=== PATIENT | male | born 1960 | race Caucasian/White ===

== ENCOUNTER 2021-10-28 12:49 | Day surgery (SDC) | payer OTHER ==
[~2021-10-28] VITALS: Ht 185.4 cm; Wt 106.8 kg
[2021-10-28] MEDS ORDERED: BOOSTRIX/ADACEL VACCINE (DIPHTH/PERTUSS/ACELL/TETANUS) 0.5ML SYR IM.IMMUN ONE (13:05)
[2021-10-28] MEDS ORDERED: ONDANSETRON 4MG 2ML VIAL IV ONE (13:05)
[2021-10-28] MEDS: MORPHINE 2 MG/ML 1ML VIAL IV PRN ×2 (13:21→14:26)
[2021-10-28] MEDS ORDERED: NS 1,000 ML IV SCH (15:55)
[2021-10-28] MEDS: propofoL 200 MG/20 ML VIAL IV.PROC PRN ×5 (16:13→16:19)
[2021-10-28 16:50] LABS: HEMATOCRIT 46.8 % (42.0-52.0); HEMOGLOBIN 16.1 g/dl (13.5-17.5); MEAN CORPUSCULAR HEMOGLOBIN 33.1 pg (27.0-33.0); MEAN CORPUSCULAR HGB CONC 34.4 g/dl (32.0-36.5); MEAN CORPUSCULAR VOLUME 96.1 fl (80.0-96.0); PLATELET COUNT, AUTOMATED 205 10^3/uL (150-450); RED BLOOD COUNT 4.87 10^6/uL (4.30-6.10); WHITE BLOOD COUNT 9.6 10^3/uL (4.0-10.0)
[2021-10-28 17:15] LABS: BLOOD UREA NITROGEN 18 MG/DL (7-18); CARBON DIOXIDE LEVEL 25 MEQ/L (21-32); CHLORIDE LEVEL 108 MEQ/L (98-107); GLOMERULAR FILTRATION RATE > 60.0 (>56); GLUCOSE, FASTING 121 MG/DL (70-100); SODIUM LEVEL 140 MEQ/L (136-145)
[2021-10-28 17:22] LABS: RSV AMPLIFICATION NEGATIVE (NEGATIVE)
[2021-10-28] MEDS ORDERED: HOME MED LIST COMPLETE! XX SCH (17:50)
[2021-10-28] MEDS ORDERED: MIDAZOLAM INJ 2MG/2ML VIAL (J2250 PER 1MG) As Ordered ONE (18:11)
[2021-10-28] MEDS ORDERED: fentaNYL 100 MCG/2 ML INJECTION As Ordered ONE (18:11)
[2021-10-28] MEDS ORDERED: LIDOCAINE 2% 100MG/5ML SDV (FOR ANES.) As Ordered ONE (18:12)
[2021-10-28] MEDS ORDERED: propofoL 200 MG/20 ML VIAL As Ordered ONE (18:12)
[2021-10-28] MEDS ORDERED: METOCLOPRAMIDE INJ 10MG/2ML VIAL (J2765 PER 1) IV PRN (18:35)
[2021-10-28] MEDS ORDERED: ONDANSETRON 4MG 2ML VIAL IV PRN ×2 (18:35→19:50)
[2021-10-28] MEDS ORDERED: ACETAMINOPHEN TAB 650MG DOSE (2X325MG) PO PRN (18:35)
[2021-10-28] MEDS ORDERED: MORPHINE 2 MG/ML 1ML VIAL IV PRN (18:35)
[2021-10-28] MEDS ORDERED: LR 1,000 ML IV SCH ×2 (19:00→19:50)
[2021-10-28] MEDS ORDERED: oxyCODONE 5MG TAB PO PRN (19:50)
[2021-10-28] MEDS ORDERED: fentaNYL 100 MCG/2 ML INJECTION IV PRN (19:50)
[2021-10-28 20:20] VITALS: BP 154/92
[2021-10-28 20:50] VITALS: BP 153/91
[2021-10-28] MEDS: DOCUSATE SODIUM 100MG CAPSULE PO SCH (21:00)
[2021-10-28 21:20] VITALS: BP 148/89
[2021-10-28 22:20] VITALS: BP 146/85
[2021-10-28 23:05] VITALS: BP 144/86
[2021-10-28] MEDS: NORCO, ANEXSIA 5/325MG TABLET (HYDROcodone/ACETAMINOPHEN) PO PRN (23:14)
[2021-10-29 00:20] VITALS: BP 140/84
[2021-10-29 01:20] VITALS: BP 137/84
[2021-10-29 02:20] VITALS: BP 126/75
[2021-10-29 05:51] VITALS: BP 132/79
[2021-10-29] MEDS: DOCUSATE SODIUM 100MG CAPSULE PO SCH (09:53)
[2021-10-29] MEDS: NORCO, ANEXSIA 5/325MG TABLET (HYDROcodone/ACETAMINOPHEN) PO PRN (09:54)
[2021-10-29 10:00] VITALS: BP 130/81
[2021-10-29] MEDS ORDERED: HYDR-3715 PO (11:11)
== END 2021-10-29 12:05 | disposition home or self-care (01) ==
LOC: EDBD 12:49 → EDSEX 12:49 → M ED 12:49 → M SDC 12:50 → M MS5PR 20:23 → M SDC 10-29 12:05
PROVIDERS: ATTEND Surgery
DX: S53.104A Unspecified dislocation of right ulnohumeral joint, initial encounter (principal); S52.511A Displaced fracture of right radial styloid process, initial encounter for closed fracture; S42.112A Displaced fracture of body of scapula, left shoulder, initial encounter for closed fracture; W11.XXXA Fall on and from ladder, initial encounter; Y92.002 Bathroom of unspecified non-institutional (private) residence as the place of occurrence of the external cause; Y99.0 Civilian activity done for income or pay
CPT/HCPCS: 24605; 70450; 71045; 72125; 73030; 73060; 73080; 73090; 73110; 73200; 76000; 80048; 85027; 87631; 90471; 90715; 93005; 93041; 94760; 96374; 96375; 96376; 99285; J2250; J2270; J2405; J3010

== ENCOUNTER → 2021-11-10 | Outpatient (CLI) | payer OTHER ==
[~2021-11-10] MED LIST: HYDR-3715 PO
== END ==
LOC: M SOG 09:08
PROVIDERS: ATTEND Orthopaedic Surgery Hand Surgery
DX: S52.511D Displaced fracture of right radial styloid process, subsequent encounter for closed fracture with routine healing (principal); M25.621 Stiffness of right elbow, not elsewhere classified

== ENCOUNTER → 2021-11-14 | Outpatient (CLI) | payer OTHER | LOC: M LABSMTC 11:30 | PROVIDERS: ATTEND Anesthesiology | DX: Z01.812 Encounter for preprocedural laboratory examination (principal); Z20.822 Contact with and (suspected) exposure to COVID-19 ==

== ENCOUNTER 2021-11-16 08:25 | Day surgery (SDC) | payer OTHER ==
[~2021-11-16] VITALS: Ht 185.4 cm; Wt 101.2 kg
[~2021-11-16 08:25] MED LIST changes: +ceFAZolin SOD 2 GM in IV 1 EA IV ONE
[2021-11-16] MEDS ORDERED: MIDAZOLAM INJ 2MG/2ML VIAL (J2250 PER 1MG) As Ordered ONE (09:11)
[2021-11-16] MEDS ORDERED: ROCURONIUM BROMIDE 50 MG/5 ML VIAL As Ordered ONE (09:11)
[2021-11-16] MEDS ORDERED: LIDOCAINE 2% 100MG/5ML SDV (FOR ANES.) As Ordered ONE (09:11)
[2021-11-16] MEDS ORDERED: fentaNYL 100 MCG/2 ML INJECTION As Ordered ONE (09:11)
[2021-11-16] MEDS ORDERED: propofoL 200 MG/20 ML VIAL As Ordered ONE ×2 (09:11→10:37)
[2021-11-16] MEDS ORDERED: dexameTHASONE 4 MG/ML 1ML VIAL (J1100 PER 1MG) As Ordered ONE (09:12)
[2021-11-16] MEDS ORDERED: ONDANSETRON 4MG 2ML VIAL As Ordered ONE (09:12)
[2021-11-16] MEDS ORDERED: BACITRACIN OINTMENT 30GM TUBE As Ordered ONE (09:56)
[2021-11-16] MEDS ORDERED: BUPIVACAINE HCL 0.25% 30ML VIAL As Ordered ONE (09:56)
[2021-11-16] MEDS ORDERED: ACETAMINOPHEN 1000MG 100ML IV BTL (OFIRMEV) (J0131 PER 10MG) As Ordered ONE (09:58)
[2021-11-16] MEDS ORDERED: KETOROLAC 60MG 2ML VIAL As Ordered ONE (09:58)
[2021-11-16] MEDS ORDERED: PHENYLephrine 500MCG 5ML (100MCG/ML) SYRINGE As Ordered ONE (11:02)
[2021-11-16] MEDS ORDERED: ePHEDrine SULFATE 25 MG/5 ML(5MG/ML) SYRINGE As Ordered ONE (11:02)
[2021-11-16] MEDS ORDERED: MORPHINE 2 MG/ML 1ML VIAL IV PRN (11:45)
[2021-11-16] MEDS ORDERED: LR 1,000 ML IV SCH (11:45)
[2021-11-16] MEDS ORDERED: PERCOCET 5MG/325MG TAB PO PRN (11:45)
[2021-11-16] MEDS ORDERED: ONDANSETRON 4MG 2ML VIAL IV PRN (11:45)
[2021-11-16] MEDS ORDERED: fentaNYL 100 MCG/2 ML INJECTION IV PRN (11:45)
[2021-11-16 12:37] VITALS: BP 147/91
== END 2021-11-16 12:56 | disposition home or self-care (01) ==
LOC: M SDC 08:25
PROVIDERS: ATTEND Orthopaedic Surgery Hand Surgery
DX: S52.511A Displaced fracture of right radial styloid process, initial encounter for closed fracture (principal); M25.821 Other specified joint disorders, right elbow; Z79.899 Other long term (current) drug therapy
CPT/HCPCS: 25608; 76000; C1713; J0131; J0690; J1100; J1885; J2250; J2370; J2405; J3010

== ENCOUNTER → 2021-11-21 | Outpatient (CLI) | payer OTHER ==
[~2021-11-21] MED LIST changes: -ceFAZolin SOD 2 GM in IV 1 EA IV ONE
== END ==
LOC: M SOG 13:50
PROVIDERS: ATTEND Physician Assistant
DX: Z47.89 Encounter for other orthopedic aftercare (principal); S52.511D Displaced fracture of right radial styloid process, subsequent encounter for closed fracture with routine healing

== ENCOUNTER → 2021-12-02 | Outpatient (CLI) | payer OTHER | LOC: M SOG 08:17 | PROVIDERS: ATTEND Orthopaedic Surgery | DX: M54.50 Low back pain, unspecified (principal) ==

== ENCOUNTER → 2021-12-19 | Outpatient (CLI) | payer OTHER | LOC: M SOG 09:25 | PROVIDERS: ATTEND Physician Assistant | DX: Z47.89 Encounter for other orthopedic aftercare (principal) ==

== ENCOUNTER → 2022-01-19 | Outpatient (CLI) | payer OTHER | LOC: M SOG 10:38 | PROVIDERS: ATTEND Orthopaedic Surgery Hand Surgery | DX: M25.621 Stiffness of right elbow, not elsewhere classified (principal); M25.631 Stiffness of right wrist, not elsewhere classified ==

== ENCOUNTER → 2022-08-10 | Outpatient (CLI) | payer OTHER | LOC: M SOG 08:50 | PROVIDERS: ATTEND Physician Assistant | DX: S53.12 Posterior subluxation and dislocation of ulnohumeral joint (principal); S52.511D Displaced fracture of right radial styloid process, subsequent encounter for closed fracture with routine healing; M25.531 Pain in right wrist ==

== ENCOUNTER → 2024-02-06 | Outpatient (CLI) | payer OTHER | LOC: M RAD 15:23 | PROVIDERS: ATTEND Nurse Practitioner Family | DX: M79.662 Pain in left lower leg (principal) ==